=== PATIENT | female | born 1935 | race Caucasian/White ===

== ENCOUNTER → 2016-05-07 | Outpatient (CLI) | payer MEDICARE ==
--- NOTE | 2016-05-07 11:26 | MM ---
Reason for exam: screening (asymptomatic). Last mammogram was performed 1 year ago. History: Patient is postmenopausal and has history of other cancer at age 63. Family history of breast cancer in sister at age 58 and premenopausal breast cancer in mother at age 45. Ultrasound-guided cyst aspiration of the right breast, July 04, 1999. Benign cyst aspiration of the right breast. Physical Findings: A clinical breast exam by your physician is recommended on an annual basis and results should be correlated with mammographic findings. MG 3D Screening Mammo W/Cad Bilateral CC and MLO view(s) were taken. Prior study comparison: May 08, 2015, left breast MG 3d work up w/cad LT. May 02, 2015, bilateral MG screening mammo w CAD. The breast tissue is heterogeneously dense. This may lower the sensitivity of mammography. Finding: There are typically benign dystrophic, round calcifications in both breasts. There is a chronic nodularity in the right breast. There is no discrete abnormality. ASSESSMENT: Benign, BI-RAD 2 RECOMMENDATION: Routine screening mammogram of both breasts in 1 year.
== END | disposition home or self-care (01) ==
LOC: RADMAMWWP 09:46
PROVIDERS: ATTEND Internal Medicine
DX: Z12.31 Encounter for screening mammogram for malignant neoplasm of breast (principal)
CPT/HCPCS: 77063; G0202

== ENCOUNTER → 2016-08-07 | Day surgery (SDC) | payer MEDICARE ==
[2016-08-06 08:14] VITALS: BMI 26.0
[~2016-08-07] MED LIST: METOPROLOL TARTRATE 12.5 MG TAB PO SCH; METOPROLOL TARTRATE 25 MG TAB PO SCH; SODIUM CHLORIDE 0.9% 1,000 ML IV SCH
[2016-08-07 09:34] VITALS: BP 146/84; PULSE 76; RESP 16; TEMP 98.2
== END ==
LOC: CATHCVL 05:49
PROVIDERS: ATTEND Internal Medicine Interventional Cardiology
DX: I48.0 Paroxysmal atrial fibrillation (principal); I25.10 Atherosclerotic heart disease of native coronary artery without angina pectoris; I10 Essential (primary) hypertension; E78.5 Hyperlipidemia, unspecified; Z79.82 Long term (current) use of aspirin; Z79.899 Other long term (current) drug therapy; Z88.5 Allergy status to narcotic agent; Z88.1 Allergy status to other antibiotic agents
CPT/HCPCS: 93005

== ENCOUNTER 2017-01-27 16:52 | Inpatient (IN) | payer MEDICARE ==
[2017-01-27] MEDS ORDERED: SODIUM CHLORIDE 0.9% 1,000 ML IV STA (16:57)
--- NOTE | 2017-01-27 17:01 | ED ---
Dizziness HPI - General Chief Complaint: Syncope Stated Complaint: A-Fib Time Seen by Provider: 01/27/17 16:52 Source: patient, EMS, RN notes reviewed Mode of arrival: EMS Limitations: no limitations - History of Present Illness Initial Comments: This 81-year-old female who states that about a week ago she had a dizzy episode almost passed out. She states that today she had a recurrence of the dizziness increasing with upright positioning. She denies any headache she does state yesterday she had difficulty with her left ear and cannot hear well she was seen by EMS and brought in for evaluation showed glucose 192 systolic blood pressure 188 she does have a history of A. fib. No fevers chills nausea vomiting sweats no dysuria hematuria no cough or phlegm production MD Complaint: dizziness, lightheadedness - Related Data Home Medications Medication Instructions Recorded Confirmed Atorvastatin [Lipitor] 10 mg PO DAILY 10/31/14 01/27/17 Glucosamine/Chondr Miller A Sod [Osteo 1 tab PO DAILY 10/31/14 01/27/17 Bi-Flex Caplet] Levothyroxine Sodium [Synthroid] 100 mcg PO MOTUWETHFRSA 10/31/14 01/27/17 Levothyroxine Sodium [Synthroid] 150 mcg PO MILLER 10/31/14 01/27/17 Lisinopril-Hctz 10-12.5 mg 1 tab PO DAILY 10/31/14 01/27/17 [Zestoretic 10-12.5] Metoprolol Tartrate 25 mg PO BID 10/31/14 01/27/17 Multivit-Min/FA/Lycopene/Lut 1 tab PO DAILY 10/31/14 01/27/17 [Centrum Silver Tablet] Aspirin [Children's Aspirin] 81 mg PO DAILY 01/27/17 01/27/17 Cholecalciferol (Vitamin D3) 2,000 unit PO DAILY 01/27/17 01/27/17 [Vitamin D3] Fish Oil/Dha/Epa [Fish Oil 1,200 1 cap PO DAILY 01/27/17 01/27/17 mg Fish Oil] Warfarin [Coumadin] 5 mg PO DAILY 01/27/17 01/27/17 Allergies Allergy/AdvReac Type Severity Reaction Status Date / Time codeine Allergy Unknown Verified 01/27/17 17:25 Review of Systems ROS Statement: Those systems with pertinent positive or pertinent negative responses have been documented in the HPI. ROS Other: All systems not noted in ROS Statement are negative. Past Medical History Past Medical History: Atrial Fibrillation, Coronary Artery Disease (CAD), Cancer , Chest Pain / Angina, Hyperlipidemia, Hypertension, Osteoarthritis (OA), Skin Disorder, Thyroid Disorder Additional Past Medical History / Comment(s): hx THYROID CANCER, varicose veins , rash on toes, History of Any Multi-Drug Resistant Organisms: None Reported Past Surgical History: Section, Heart Catheterization With Stent, Hysterectomy, Orthopedic Surgery Additional Past Surgical History / Comment(s): thyroidectomy, BABATUNDE CATARACTS, babatunde OPPHERECTOMY W/SALPINGECTOMY, cardioversion, babatunde knee arthroscopy Past Anesthesia/Blood Transfusion Reactions: Postoperative Nausea & Vomiting ( PONV) Additional Past Anesthesia/Blood Transfusion Reaction / Comment(s): CLAUSTROPHOBIA Date of Last Stent Placement:: Past Psychological History: Anxiety Smoking Status: Never smoker Past Alcohol Use History: None Reported Past Drug Use History: None Reported - Past Family History Sister(s) Family Medical History: Cancer Father Family Medical History: Cancer Additional Family Medical History / Comment(s): AT AGE 73 COLON CANCER Mother Family Medical History: Cancer Additional Family Medical History / Comment(s): AGE 47 BREAST CANCER General Exam - General Exam Comments Initial Comments: This is a well-developed well-nourished awake alert oriented 3 female Limitations: no limitations General appearance: alert, in no apparent distress Head exam: Present: atraumatic, normocephalic, normal inspection Eye exam: Present: normal appearance, PERRL, EOMI. Absent: scleral icterus, conjunctival injection, periorbital swelling ENT exam: Present: mucous membranes dry Neck exam: Present: normal inspection. Absent: tenderness, meningismus, lymphadenopathy Respiratory exam: Present: normal lung sounds bilaterally. Absent: respiratory distress, wheezes, rales, rhonchi, stridor Cardiovascular Exam: Present: regular rate, normal rhythm, normal heart sounds. Absent: systolic murmur, diastolic murmur, rubs, gallop, clicks GI/Abdominal exam: Present: soft, normal bowel sounds. Absent: distended, tenderness, guarding, rebound, rigid Extremities exam: Present: normal inspection, full ROM, normal capillary refill. Absent: tenderness, pedal edema, joint swelling, calf tenderness Back exam: Present: normal inspection Neurological exam: Present: alert, oriented X3, CN II-XII intact Psychiatric exam: Present: normal affect, normal mood Skin exam: Present: warm, dry, intact, normal color. Absent: rash Course Vital Signs 01/27/17 01/27/17 01/27/17 16:54 17:56 18:58 Temperature 97.1 F L Pulse Rate 73 69 69 Respiratory 18 18 18 Rate Blood Pressure 172/81 165/76 181/77 O2 Sat by Pulse 97 94 L 95 Oximetry 01/27/17 19:36 Temperature Pulse Rate 66 Respiratory 18 Rate Blood Pressure 150/71 O2 Sat by Pulse 98 Oximetry EKG Findings - EKG Results: EKG: interpreted by ELIZABETH, sinus rhythm (Sinus rhythm rate of 61 appear of 01 66 QRS 84 daily since QTC of 448/450 nonspecific T-wave configuration.) Medical Decision Making - Medical Decision Making I did reevaluate patient several occasions patient has some improvement but still has some dizziness she was able ambulate somewhat easier with assistance. There is a prolonged period time I will admit the patient she'll be given a neurological consultation. - Lab Data Result diagrams: 01/27/17 17:00 01/27/17 17:00 Lab Results 01/27/17 01/27/17 01/27/17 Range/Units 17:00 17:00 17:00 WBC 7.5 (3.8-10.6) k/uL RBC 4.27 (3.80-5.40) m/uL Hgb 13.8 (11.4-16.0) gm/dL Hct 41.9 (34.0-46.0) % MCV 98.0 (80.0-100.0) fL MCH 32.4 (25.0-35.0) pg MCHC 33.0 (31.0-37.0) g/dL RDW 11.9 (11.5-15.5) % Plt Count 211 (150-450) k/uL Neutrophils % 86 % Lymphocytes % 9 % Monocytes % 3 % Eosinophils % 1 % Basophils % 1 % Neutrophils # 6.4 (1.3-7.7) k/uL Lymphocytes # 0.7 L (1.0-4.8) k/uL Monocytes # 0.2 (0-1.0) k/uL Eosinophils # 0.1 (0-0.7) k/uL Basophils # 0.0 (0-0.2) k/uL PT (9.0-12.0) sec INR (<1.2) APTT (22.0-30.0) sec D-Dimer (<0.60) mg/L FEU Sodium 140 (137-145) mmol/L Potassium 3.8 (3.5-5.1) mmol/L Chloride 104 (98-107) mmol/L Carbon Dioxide 25 (22-30) mmol/L Anion Gap 11 mmol/L BUN 17 (7-17) mg/dL Creatinine 0.92 (0.52-1.04) mg/dL Est GFR (MDRD) Af Amer >60 (>60 ml/min/1.73 sqM) Est GFR (MDRD) Non-Af 58 (>60 ml/min/1.73 sqM) Glucose 145 H (74-99) mg/dL Calcium 9.7 (8.4-10.2) mg/dL Magnesium 2.0 (1.6-2.3) mg/dL Total Bilirubin 0.7 (0.2-1.3) mg/dL AST 23 (14-36) U/L ALT 36 (9-52) U/L Alkaline Phosphatase 92 (38-126) U/L Total Creatine Kinase 55 (30-135) U/L CK-MB (CK-2) 1.0 (0.0-2.4) ng/mL CK-MB (CK-2) Rel Index 1.8 Troponin I <0.012 (0.000-0.034) ng/mL Total Protein 7.2 (6.3-8.2) g/dL Albumin 4.3 (3.5-5.0) g/dL Urine Color Urine Appearance (Clear) Urine pH (5.0-8.0) Ur Specific Gar[place] (1.001-1.035) Urine Protein (Negative) Urine Glucose (UA) (Negative) Urine Ketones (Negative) Urine Blood (Negative) Urine Nitrite (Negative) Urine Bilirubin (Negative) Urine Urobilinogen (<2.0) mg/dL Ur Leukocyte Esterase (Negative) Urine RBC (0-5) /hpf Urine WBC (0-5) /hpf Ur Squamous Epith Cells (0-4) /hpf Amorphous Sediment (None) /hpf Urine Bacteria (None) /hpf Urine Mucus (None) /hpf 01/27/17 01/27/17 Range/Units 17:00 19:44 WBC (3.8-10.6) k/uL RBC (3.80-5.40) m/uL Hgb (11.4-16.0) gm/dL Hct (34.0-46.0) % MCV (80.0-100.0) fL MCH (25.0-35.0) pg MCHC (31.0-37.0) g/dL RDW (11.5-15.5) % Plt Count (150-450) k/uL Neutrophils % % Lymphocytes % % Monocytes % % Eosinophils % % Basophils % % Neutrophils # (1.3-7.7) k/uL Lymphocytes # (1.0-4.8) k/uL Monocytes # (0-1.0) k/uL Eosinophils # (0-0.7) k/uL Basophils # (0-0.2) k/uL PT 11.7 (9.0-12.0) sec INR 1.2 H (<1.2) APTT 23.3 (22.0-30.0) sec D-Dimer 0.82 H (<0.60) mg/L FEU Sodium (137-145) mmol/L Potassium (3.5-5.1) mmol/L Chloride (98-107) mmol/L Carbon Dioxide (22-30) mmol/L Anion Gap mmol/L BUN (7-17) mg/dL Creatinine (0.52-1.04) mg/dL Est GFR (MDRD) Af Amer (>60 ml/min/1.73 sqM) Est GFR (MDRD) Non-Af (>60 ml/min/1.73 sqM) Glucose (74-99) mg/dL Calcium (8.4-10.2) mg/dL Magnesium (1.6-2.3) mg/dL Total Bilirubin (0.2-1.3) mg/dL AST (14-36) U/L ALT (9-52) U/L Alkaline Phosphatase (38-126) U/L Total Creatine Kinase (30-135) U/L CK-MB (CK-2) (0.0-2.4) ng/mL CK-MB (CK-2) Rel Index Troponin I (0.000-0.034) ng/mL Total Protein (6.3-8.2) g/dL Albumin (3.5-5.0) g/dL Urine Color Light Yellow Urine Appearance Cloudy H (Clear) Urine pH 7.5 (5.0-8.0) Ur Specific [place] 1.032 (1.001-1.035) Urine Protein Trace H (Negative) Urine Glucose (UA) 2+ H (Negative) Urine Ketones Trace H (Negative) Urine Blood Negative (Negative) Urine Nitrite Negative (Negative) Urine Bilirubin Negative (Negative) Urine Urobilinogen <2.0 (<2.0) mg/dL Ur Leukocyte Esterase Negative (Negative) Urine RBC 4 (0-5) /hpf Urine WBC 5 (0-5) /hpf Ur Squamous Epith Cells 1 (0-4) /hpf Amorphous Sediment Rare H (None) /hpf Urine Bacteria Many H (None) /hpf Urine Mucus Rare H (None) /hpf - Radiology Data Radiology results: report reviewed (I did review the imaging and reports no acute findings.), image reviewed Disposition Clinical Impression: Vertigo, Syncopal episodes Disposition: ADMITTED IP TO THIS [facility] Condition: Stable Referrals: Spencer Martinez MD [Primary Care Provider] - 1-2 days
[2017-01-27] MEDS ORDERED: ONDANSETRON 4 MG/2 ML VIAL IVP STA (17:12)
[2017-01-27 17:22] LABS: Basophils % (A) 1 %; CH 33.1; CHCM 33.9; Eosinophils # (A) 0.1 k/uL (0-0.7); Eosinophils % (A) 1 %; HCT 41.9 % (34.0-46.0); HDW 2.29; HGB 13.8 gm/dL (11.4-16.0); Luc # (Auto) 0.05; Luc % (Auto) 1; Lymphocytes # (A) 0.7 k/uL (1.0-4.8); Lymphocytes % (A) 9 %; MCH 32.4 pg (25.0-35.0); Mean Platelet Volume 6.9; Monocytes # (A) 0.2 k/uL (0-1.0); Monocytes % (A) 3 %; Neutrophils # (A) 6.4 k/uL (1.3-7.7); Neutrophils % (A) 86 %; RBC 4.27 m/uL (3.80-5.40); RDW 11.9 % (11.5-15.5); WBC 7.5 k/uL (3.8-10.6); WBC (Perox) 7.55
[2017-01-27 17:36] LABS: INR 1.2 (<1.2); Partial Thromboplastin Time 23.3 sec (22.0-30.0); Prothrombin Time 11.7 sec (9.0-12.0)
--- NOTE | 2017-01-27 17:40 | XR ---
EXAMINATION TYPE: XR chest 2V DATE OF EXAM: 01/27/2017 COMPARISON: 10/31/2014 HISTORY: Syncope TECHNIQUE: Frontal and lateral views of the chest are obtained. FINDINGS: Retrocardiac density relates to a partial intrathoracic stomach. No pleural effusion or fo karla consolidation is seen. Pleural plaquing is similar to the prior exam. There is increased anterior posterior diameter of the chest and pulmonary hyperinflation compatible with underlying COPD. Multil evel degenerative changes of the thoracic spine are noted. Cardiac silhouette is enlarged. Chronic in terstitial changes are seen of the lungs. Disease osseous demineralization is noted. IMPRESSION: 1. No acute cardiopulmonary process. 2. 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 3. Chronic interstitial changes and cardiomegaly.
[2017-01-27 17:41] LABS: ALT 36 U/L (9-52); AST 23 U/L (14-36); Alkaline Phosphatase 92 U/L (38-126); Anion Gap 11 mmol/L; Blood Urea Nitrogen 17 mg/dL (7-17); Calcium 9.7 mg/dL (8.4-10.2); Carbon Dioxide 25 mmol/L (22-30); Chloride 104 mmol/L (98-107); Creatine Kinase 55 U/L (30-135); Glucose 145 mg/dL (74-99); Non-African American GFR(MDRD) 58 (>60 ml/min/1.73 sqM); Potassium 3.8 mmol/L (3.5-5.1); Sodium 140 mmol/L (137-145); Total Bilirubin 0.7 mg/dL (0.2-1.3); Total Protein 7.2 g/dL (6.3-8.2)
[2017-01-27 17:53] LABS: Troponin I <0.012 ng/mL (0.000-0.034)
--- NOTE | 2017-01-27 18:00 | CT ---
EXAMINATION TYPE: CT brain wo con DATE OF EXAM: 01/27/2017 COMPARISON: NONE HISTORY: Dizziness, nausea and vomiting. CT DLP: 1069.20 mGycm. Automated Exposure Control for Dose Reduction was Utilized. TECHNIQUE: CT scan of the head is performed without contrast. FINDINGS: There is no acute intracranial hemorrhage or midline shift identified. There is diffuse v entricular and sulcal prominence consistent with diffuse age-related cerebral atrophy. There is low- attenuation in the periventricular white matter consistent with chronic small vessel ischemic change. The globes are intact and the visualized sinuses are clear. IMPRESSION: No acute intracranial hemorrhage or midline shift. There is diffuse age-related cerebra l atrophy and chronic small vessel ischemic change noted.
[2017-01-27] MEDS ORDERED: MECLIZINE 12.5 MG TAB PO STA (18:11)
[2017-01-27] MEDS ORDERED: RX INFO: IV CONTRAST WAS GIVEN 1 EACH MISC MISCELLANE PRN (18:51)
[2017-01-27] MEDS ORDERED: LORazepam 2 MG/ML INJ IV STA (18:52)
--- NOTE | 2017-01-27 20:18 | CT ---
EXAMINATION TYPE: CT angio chest DATE OF EXAM: 01/27/2017 COMPARISON: NONE HISTORY: Elevated d-dimer. CT DLP: 243.90 mGycm. Automated Exposure Control for Dose Reduction was Utilized. CONTRAST: CTA scan of the thorax is performed with IV Contrast, patient injected with 70 mL of Visipaque 320, p ulmonary embolism protocol. MIP Images are created on CT scanner and reviewed. FINDINGS: LUNGS: The stomach is largely intrathoracic with air-fluid levels and surrounding left basilar subseg mental atelectasis. Additional left basilar consolidation with air bronchograms is identified. Bibasi lar subsegmental atelectasis is noted with left apical dependent groundglass opacities. These are new in comparison to the prior examination of 2009. 3 mm right upper lobe pulmonary nodule is stable fro m 2010 and to be considered benign. Linear pleural parenchymal scarring is noted at the lung bases. MEDIASTINUM: There is satisfactory enhancement of the pulmonary artery and its branches, there is no CT evidence for pulmonary embolism. There are no greater than 1 cm hilar or mediastinal lymph nodes. 9 mm right hilar node is noted. No cardiomegaly or pericardial effusion is seen. IMPRESSION: 1. No evidence of pulmonary embolus. 2. Largely intrathoracic stomach appears similar in configuration to 2010. This results in left basil ar subsegmental atelectasis. Left-sided airspace disease is also identified with air bronchograms melvin t may relate to atelectasis and/or pneumonia. Left apical groundglass opacities are new from prior an d short-term CT follow-up could be performed in 6 months for reevaluation.
[2017-01-27 20:20] LABS: Amorphous Sediment,Urine Rare /hpf; Appearance,Urine Cloudy (Clear); Bacteria,Urine Many /hpf; Bilirubin,Urine Negative (Negative); Glucose,Urine (UA) 2+ (Negative); Ketones,Urine Trace (Negative); Leukocyte Esterase,Urine Negative (Negative); Mucus,Urine Rare /hpf; Nitrite,Urine Negative (Negative); PH, Urine 7.5 (5.0-8.0); Particle Count 9146; Protein,Urine Trace (Negative); RBC,Urine 4 /hpf (0-5); Specific Gravity,Urine 1.032 (1.001-1.035); Squamous Epithelial Cell,Urine 1 /hpf (0-4); UA Billing (MACRO vs. MICRO) MICRO; Urobilinogen,Urine <2.0 mg/dL (<2.0); WBC,Urine 5 /hpf (0-5)
[2017-01-27] MEDS ORDERED: NALOXONE 0.4 MG/ML 1 ML VIAL IV PRN (21:41)
[2017-01-27] MEDS: LEVOTHYROXINE 100 MCG TAB PO SCH (22:28)
[2017-01-27 22:38] VITALS: BMI 28.8
[2017-01-27] MEDS ORDERED: ONDANSETRON 4 MG/2 ML VIAL IVP PRN (23:23)
[2017-01-27] MEDS ORDERED: MELATONIN 3 MG TABLET PO PRN (23:26)
[2017-01-28] MEDS: MECLIZINE 25 MG TAB PO SCH ×4 (00:01→21:52)
[2017-01-28] MEDS: SODIUM CHLORIDE 0.9% 1,000 ML IV SCH ×2 (00:03→21:58)
[2017-01-28] MEDS: LEVOTHYROXINE 100 MCG TAB PO SCH (06:15)
[2017-01-28 06:32] LABS: Basophils % (A) 0 %; CHCM 33.6; Eosinophils # (A) 0.1 k/uL (0-0.7); Eosinophils % (A) 1 %; HCT 38.7 % (34.0-46.0); HDW 2.27; HGB 12.6 gm/dL (11.4-16.0); Luc # (Auto) 0.13; Luc % (Auto) 2; Lymphocytes % (A) 12 %; MCH 32.3 pg (25.0-35.0); MCHC 32.7 g/dL (31.0-37.0); MCV 98.8 fL (80.0-100.0); Monocytes # (A) 0.5 k/uL (0-1.0); Monocytes % (A) 6 %; Neutrophils # (A) 6.8 k/uL (1.3-7.7); Neutrophils % (A) 80 %; RBC 3.91 m/uL (3.80-5.40); RDW 12.1 % (11.5-15.5); WBC 8.5 k/uL (3.8-10.6); WBC (Perox) 9.03
[2017-01-28 06:34] LABS: INR 1.6 (<1.2); Prothrombin Time 15.5 sec (9.0-12.0)
[2017-01-28 06:44] LABS: Anion Gap 7 mmol/L; Blood Urea Nitrogen 15 mg/dL (7-17); Carbon Dioxide 27 mmol/L (22-30); Chloride 104 mmol/L (98-107); Glucose 106 mg/dL (74-99); Magnesium 1.9 mg/dL (1.6-2.3); Non-African American GFR(MDRD) 60 (>60 ml/min/1.73 sqM); Potassium 3.6 mmol/L (3.5-5.1); Sodium 138 mmol/L (137-145)
[2017-01-28] MEDS ORDERED: NON-FORMULARY DRUG (Fish Oil/Dha/Epa [Fish Oil 1,200 Mg Fish Oil] 1 CAP) PO SCH (09:00)
[2017-01-28] MEDS ORDERED: NON-FORMULARY DRUG (Glucosamine/Chondr Su A Sod [Osteo Bi-Flex Caplet] 1 TAB) PO SCH (09:00)
--- NOTE | 2017-01-28 09:21 | P.CRDCN ---
History of Present Illness Consult date: 01/28/17 Chief complaint: Dizziness and lightheadedness History of present illness: This is a pleasant 81-year-old female patient who I see in the office as an outpatient with a past medical history significant for coronary artery disease, hypertension, dyslipidemia, and paroxysmal A. fib, presented to the hospital complaining of dizziness and lightheadedness. The patient has been experiencing intermittent and a prompt episode of dizziness and lightheadedness without loss of consciousness. She denies having any chest pain or chest discomfort. Denies having any shortness of breath. No feeling of heart racing or fluttering. The patient has been experiencing atrial fibrillation with RVR over the last several months and I did some adjustment on her beta nayely were I did increase the dose on her lately. But she has been doing good for the last several months until few weeks ago when she started experiencing the dizziness and lightheadedness. The first set of cardiac enzymes came in to be unremarkable. The EKG showed sinus rhythm with diffuse nonspecific changes. At this point, I will follow-up with the serial cardiac enzymes. I will obtain an echocardiogram was Doppler. I will continue monitor the heart rate to make sure the patient is not having tachybradycardia syndrome/sick sinus syndrome. Past Medical History Past Medical History: Atrial Fibrillation, Coronary Artery Disease (CAD), Cancer , Chest Pain / Angina, Hyperlipidemia, Hypertension, Osteoarthritis (OA), Skin Disorder, Thyroid Disorder Additional Past Medical History / Comment(s): hx THYROID CANCER, varicose veins , rash on toes, History of Any Multi-Drug Resistant Organisms: None Reported Past Surgical History: Section, Heart Catheterization With Stent, Hysterectomy, Orthopedic Surgery Additional Past Surgical History / Comment(s): thyroidectomy, BABATUNDE CATARACTS, babatunde OPPHERECTOMY W/SALPINGECTOMY, cardioversion, babatunde knee arthroscopy Past Anesthesia/Blood Transfusion Reactions: Postoperative Nausea & Vomiting ( PONV) Additional Past Anesthesia/Blood Transfusion Reaction / Comment(s): CLAUSTROPHOBIA Date of Last Stent Placement:: Past Psychological History: Anxiety Smoking Status: Never smoker Past Alcohol Use History: None Reported Past Drug Use History: None Reported - Past Family History Sister(s) Family Medical History: Cancer Father Family Medical History: Cancer Additional Family Medical History / Comment(s): AT AGE 73 COLON CANCER Mother Family Medical History: Cancer Additional Family Medical History / Comment(s): AGE 47 BREAST CANCER Medications and Allergies Home Medications Medication Instructions Recorded Confirmed Type Atorvastatin [Lipitor] 10 mg PO DAILY 10/31/14 01/27/17 History Glucosamine/Chondr Miller A Sod [Osteo 1 tab PO DAILY 10/31/14 01/27/17 History Bi-Flex Caplet] Levothyroxine Sodium [Synthroid] 100 mcg PO MOTUWETHFRSA 10/31/14 01/27/17 History Levothyroxine Sodium [Synthroid] 150 mcg PO MILLER 10/31/14 01/27/17 History Lisinopril-Hctz 10-12.5 mg 1 tab PO DAILY 10/31/14 01/27/17 History [Zestoretic 10-12.5] Metoprolol Tartrate 25 mg PO BID 10/31/14 01/27/17 History Multivit-Min/FA/Lycopene/Lut 1 tab PO DAILY 10/31/14 01/27/17 History [Centrum Silver Tablet] Aspirin [Children's Aspirin] 81 mg PO DAILY 01/27/17 01/27/17 History Cholecalciferol (Vitamin D3) 2,000 unit PO DAILY 01/27/17 01/27/17 History [Vitamin D3] Fish Oil/Dha/Epa [Fish Oil 1,200 1 cap PO DAILY 01/27/17 01/27/17 History mg Fish Oil] Warfarin [Coumadin] 5 mg PO DAILY 01/27/17 01/27/17 History Allergies Allergy/AdvReac Type Severity Reaction Status Date / Time codeine Allergy Unknown Verified 01/27/17 17:25 Physical Exam Vitals: Vital Signs Temp Pulse Pulse Pulse Pulse Pulse Resp 01/28/17 08:00 97.7 F 83 90 77 12 01/28/17 04:00 98.2 F 72 18 01/28/17 00:00 97 F L 76 18 01/27/17 22:26 18 01/27/17 21:59 98.7 F 74 18 01/27/17 19:36 66 18 01/27/17 18:58 69 18 01/27/17 17:56 69 18 01/27/17 16:54 97.1 F L 73 18 BP BP BP BP Pulse Ox 01/28/17 08:00 143/81 149/75 131/64 95 01/28/17 04:00 129/60 96 01/28/17 00:00 127/64 95 01/27/17 22:26 148/82 145/85 145/77 92 L 01/27/17 21:59 98 01/27/17 19:36 150/71 98 01/27/17 18:58 181/77 95 01/27/17 17:56 165/76 94 L 01/27/17 16:54 172/81 97 Intake and Output 01/27/17 01/28/17 01/28/17 22:59 06:59 14:59 Intake Total 240 Balance 240 Intake: Oral 240 Other: # Voids 1 2 Weight 73.936 kg 54.5 kg - Constitutional General appearance: no acute distress - Respiratory Respiratory: bilateral: CTA - Cardiovascular Rhythm: regular Heart sounds: normal: S1, S2 Results 01/28/17 05:21 01/28/17 05:21 Cardiac Enzymes 01/27/17 01/27/17 Range/Units 17:00 17:00 AST 23 (14-36) U/L CK-MB (CK-2) 1.0 (0.0-2.4) ng/mL Troponin I <0.012 (0.000-0.034) ng/mL Coagulation 01/27/17 01/28/17 Range/Units 17:00 05:21 PT 11.7 15.5 H (9.0-12.0) sec APTT 23.3 (22.0-30.0) sec CBC 01/27/17 01/28/17 Range/Units 17:00 05:21 WBC 7.5 8.5 (3.8-10.6) k/uL RBC 4.27 3.91 (3.80-5.40) m/uL Hgb 13.8 12.6 (11.4-16.0) gm/dL Hct 41.9 38.7 (34.0-46.0) % Plt Count 211 209 (150-450) k/uL Comprehensive Metabolic Panel 01/27/17 01/28/17 Range/Units 17:00 05:21 Sodium 140 138 (137-145) mmol/L Potassium 3.8 3.6 (3.5-5.1) mmol/L Chloride 104 104 (98-107) mmol/L Carbon Dioxide 25 27 (22-30) mmol/L BUN 17 15 (7-17) mg/dL Creatinine 0.92 0.90 (0.52-1.04) mg/dL Glucose 145 H 106 H (74-99) mg/dL Calcium 9.7 9.0 (8.4-10.2) mg/dL AST 23 (14-36) U/L ALT 36 (9-52) U/L Alkaline Phosphatase 92 (38-126) U/L Total Protein 7.2 (6.3-8.2) g/dL Albumin 4.3 (3.5-5.0) g/dL Current Medications Generic Name Dose Route Start Last Admin Trade Name Freq PRN Reason Stop Dose Admin Aspirin 81 mg 01/28/17 09:00 Aspirin PO DAILY [facility] Atorvastatin Calcium 10 mg 01/28/17 09:00 Lipitor PO DAILY [facility] Cholecalciferol 2,000 unit 01/28/17 12:00 Vitamin D3 PO DAILY@1200 [facility] Lisinopril/HCTZ 1 each 01/28/17 09:00 Zestoretic 10-12.5 PO DAILY [facility] Sodium Chloride 1,000 mls @ 20 mls/hr 01/27/17 21:45 01/28/17 00:03 Saline 0.9% IV 20 mls/hr .Q24H [facility]GENE Administration Levothyroxine Sodium 150 mcg 02/02/17 06:30 Synthroid PO MILLER EUGENE Levothyroxine Sodium 100 mcg 01/27/17 21:45 01/28/17 06:15 Synthroid PO 100 mcg [id number] EUGEN[facility] Administration Meclizine HCl 25 mg 01/27/17 22:00 01/28/17 00:01 Antivert PO 25 mg TID EUGENE Administration Melatonin 6 mg 01/27/17 23:26 01/28/17 00:01 Melatonin PO 6 mg HS PRN Administration Insomnia Metoprolol Tartrate 25 mg 01/28/17 09:00 Lopressor PO BID [facility] Miscellaneous Information 1 each 01/27/17 18:51 01/27/17 19:19 Rx Info: Iv Contrast Was Given MISCELLANE 01/29/17 18:51 1 each DAILY PRN Administration Per Protocol Multivitamins 1 each 01/28/17 12:00 Theragran PO DAILY@1200 [facility] Naloxone HCl 0.2 mg 01/27/17 21:41 Narcan IV Q2M PRN Opioid Reversal Ondansetron HCl 4 mg 01/27/17 23:23 Zofran IVP Q6HR PRN Nausea And Vomiting Warfarin Sodium 5 mg 01/28/17 18:00 Coumadin PO DAILY@1800 [facility] Intake and Output 01/27/17 01/28/17 01/28/17 22:59 06:59 14:59 Intake Total 240 Balance 240 Intake: Oral 240 Other: # Voids 1 2 Weight 73.936 kg 54.5 kg 01/28/17 05:21 01/28/17 05:21 Assessment and Plan Assessment: This is a pleasant 81-year-old female patient with known CAD and prior stenting , paroxysmal A. fib, and hypertension, presented to the emergency room was dizziness and lightheadedness without syncope. I am concerned about tachybradycardia syndrome/sick sinus syndrome. I am going to monitor the heart rate for additional 24 hours. Follow-up with the serial cardiac enzymes. Follow-up with the patient. Obtain an echocardiogram was Doppler.
[2017-01-28] MEDS: ATORVASTATIN 10 MG TAB PO SCH (09:31)
[2017-01-28] MEDS: ASPIRIN 81 MG PO SCH (09:31)
[2017-01-28] MEDS: METOPROLOL TARTRATE 25 MG TAB PO SCH ×2 (09:31→21:51)
[2017-01-28] MEDS: LISINOPRIL-HCTZ 10-12.5 MG 1 EACH TAB PO SCH (09:31)
[2017-01-28] MEDS: MULTIVITAMINS, THERA 1 EACH TAB PO SCH (09:32)
[2017-01-28] MEDS: CHOLECALCIFEROL 1,000 UNIT TAB PO SCH (09:32)
[2017-01-28] MEDS ORDERED: Potassium Replacement Protocol 1 EACH MISC MISCELLANE PRN (10:24)
[2017-01-28] MEDS ORDERED: Magnesium Replacement Protocol 1 EACH MISC MISCELLANE PRN (10:24)
[2017-01-28] MEDS ORDERED: POTASSIUM CHLORIDE ER 20 MEQ TAB.ER PO SCH (11:00)
--- NOTE | 2017-01-28 14:05 | P.HPIM ---
History of Present Illness 80-year-old female patient with known history of atrial fibrillation came in with compensative dizziness lightheadedness restarted yesterday happens mostly when she tries to get up patient denied any fever, chills, nausea, vomiting. Patient follows with Dr. Anguiano apparently patient's beta nayely dose was increased recently and there was a concern about tachybradycardia syndrome because of which we're monitoring her overnight here. Patient denied any cough runny nose chest pain nausea vomiting dysuria. Patient denied any vertiginous symptoms. CAT scan of the head is essentially negative chest a CAT scan was done which showed little bit of a bronchogram but patient does not have any symptoms of pneumonia patient has intrathoracic stomach. Review of Systems REVIEW OF SYSTEMS: CONSTITUTIONAL: No fever, no malaise, no fatigue. HEENT: No recent visual problems or hearing problems. Denied any sore throat. CARDIOVASCULAR: No chest pain, orthopnea, PND, no palpitations, no syncope. PULMONARY: No shortness of breath, no cough, no hemoptysis. GASTROINTESTINAL: No diarrhea, no nausea, no vomiting, no abdominal pain. Normoactive bowel sounds. NEUROLOGICAL: No headaches, no weakness, no numbness. HEMATOLOGICAL: Denies any bleeding or petechiae. GENITOURINARY: Denies any burning micturition, frequency, or urgency. MUSCULOSKELETAL/RHEUMATOLOGICAL: Denies any joint pain, swelling, or any muscle pain. ENDOCRINE: Denies any polyuria or polydipsia. The rest of the 14-point review of systems is negative. Past Medical History Past Medical History: Atrial Fibrillation, Coronary Artery Disease (CAD), Cancer , Chest Pain / Angina, Hyperlipidemia, Hypertension, Osteoarthritis (OA), Skin Disorder, Thyroid Disorder Additional Past Medical History / Comment(s): hx THYROID CANCER, varicose veins , rash on toes, History of Any Multi-Drug Resistant Organisms: None Reported Past Surgical History: Section, Heart Catheterization With Stent, Hysterectomy, Orthopedic Surgery Additional Past Surgical History / Comment(s): thyroidectomy, BABATUNDE CATARACTS, babatunde OPPHERECTOMY W/SALPINGECTOMY, cardioversion, babatunde knee arthroscopy Past Anesthesia/Blood Transfusion Reactions: Postoperative Nausea & Vomiting ( PONV) Additional Past Anesthesia/Blood Transfusion Reaction / Comment(s): CLAUSTROPHOBIA Date of Last Stent Placement:: Past Psychological History: Anxiety Smoking Status: Never smoker Past Alcohol Use History: None Reported Past Drug Use History: None Reported - Past Family History Sister(s) Family Medical History: Cancer Father Family Medical History: Cancer Additional Family Medical History / Comment(s): AT AGE 73 COLON CANCER Mother Family Medical History: Cancer Additional Family Medical History / Comment(s): AGE 47 BREAST CANCER Medications and Allergies Home Medications Medication Instructions Recorded Confirmed Type Atorvastatin [Lipitor] 10 mg PO DAILY 10/31/14 01/27/17 History Glucosamine/Chondr Devlin A Sod [Osteo 1 tab PO DAILY 10/31/14 01/27/17 History Bi-Flex Caplet] Levothyroxine Sodium [Synthroid] 100 mcg PO MOTUWETHFRSA 10/31/14 01/27/17 History Levothyroxine Sodium [Synthroid] 150 mcg PO DEVLIN 10/31/14 01/27/17 History Lisinopril-Hctz 10-12.5 mg 1 tab PO DAILY 10/31/14 01/27/17 History [Zestoretic 10-12.5] Metoprolol Tartrate 25 mg PO BID 10/31/14 01/27/17 History Multivit-Min/FA/Lycopene/Lut 1 tab PO DAILY 10/31/14 01/27/17 History [Centrum Silver Tablet] Aspirin [Children's Aspirin] 81 mg PO DAILY 01/27/17 01/27/17 History Cholecalciferol (Vitamin D3) 2,000 unit PO DAILY 01/27/17 01/27/17 History [Vitamin D3] Fish Oil/Dha/Epa [Fish Oil 1,200 1 cap PO DAILY 01/27/17 01/27/17 History mg Fish Oil] Warfarin [Coumadin] 5 mg PO DAILY 01/27/17 01/27/17 History Allergies Allergy/AdvReac Type Severity Reaction Status Date / Time codeine Allergy Unknown Verified 01/27/17 17:25 Physical Exam Vitals: Vital Signs Temp Pulse Pulse Pulse Pulse Pulse Resp 01/28/17 11:50 16 01/28/17 11:49 73 16 01/28/17 08:40 12 01/28/17 08:00 97.7 F 83 90 77 12 01/28/17 04:00 98.2 F 72 18 01/28/17 00:00 97 F L 76 18 01/27/17 22:26 18 01/27/17 21:59 98.7 F 74 18 01/27/17 19:36 66 18 01/27/17 18:58 69 18 01/27/17 17:56 69 18 01/27/17 16:54 97.1 F L 73 18 BP BP BP BP Pulse Ox 01/28/17 11:50 01/28/17 11:49 142/70 94 L 01/28/17 08:40 01/28/17 08:00 143/81 149/75 131/64 95 01/28/17 04:00 129/60 96 01/28/17 00:00 127/64 95 01/27/17 22:26 148/82 145/85 145/77 92 L 01/27/17 21:59 98 01/27/17 19:36 150/71 98 01/27/17 18:58 181/77 95 01/27/17 17:56 165/76 94 L 01/27/17 16:54 172/81 97 Intake and Output 01/27/17 01/28/17 01/28/17 22:59 06:59 14:59 Intake Total 240 Output Total 200 Balance 40 Intake: Oral 240 Output: Urine 200 Other: # Voids 1 2 Weight 73.936 kg 54.5 kg PHYSICAL EXAMINATION: GENERAL: The patient is alert and oriented x3, not in any acute distress. Well developed, well nourished. HEENT: Pupils are round and equally reacting to light. EOMI. No scleral icterus. No conjunctival pallor. Normocephalic, atraumatic. No pharyngeal erythema. No thyromegaly. CARDIOVASCULAR: S1 and S2 present. No murmurs, rubs, or gallops. PULMONARY: Chest is clear to auscultation, no wheezing or crackles. ABDOMEN: Soft, nontender, nondistended, normoactive bowel sounds. No palpable organomegaly. MUSCULOSKELETAL: No joint swelling or deformity. EXTREMITIES: No cyanosis, clubbing, or pedal edema. NEUROLOGICAL: Gross neurological examination did not reveal any focal deficits. SKIN: No rashes. Results CBC & Chem 7: 01/28/17 05:21 01/28/17 05:21 Labs: Abnormal Lab Results - Last 24 Hours (Table) 10/30/17 10/30/17 10/30/17 Range/Units 17:00 17:00 17:00 Lymphocytes # 0.7 L (1.0-4.8) k/uL PT (9.0-12.0) sec INR 1.2 H (<1.2) D-Dimer 0.82 H (<0.60) mg/L FEU Glucose 145 H (74-99) mg/dL Urine Appearance (Clear) Urine Protein (Negative) Urine Glucose (UA) (Negative) Urine Ketones (Negative) Amorphous Sediment (None) /hpf Urine Bacteria (None) /hpf Urine Mucus (None) /hpf 01/27/17 01/28/17 01/28/17 Range/Units 19:44 05:21 05:21 Lymphocytes # (1.0-4.8) k/uL PT 15.5 H (9.0-12.0) sec INR 1.6 H (<1.2) D-Dimer (<0.60) mg/L FEU Glucose 106 H (74-99) mg/dL Urine Appearance Cloudy H (Clear) Urine Protein Trace H (Negative) Urine Glucose (UA) 2+ H (Negative) Urine Ketones Trace H (Negative) Amorphous Sediment Rare H (None) /hpf Urine Bacteria Many H (None) /hpf Urine Mucus Rare H (None) /hpf Thrombosis Risk Factor Assmnt - Choose All That Apply Each Risk Factor Represents 3 Points: Age 75 years or older Thrombosis Risk Factor Assessment Total Risk Factor Score: 3 Thrombosis Risk Factor Assessment Level: Moderate Risk Assessment and Plan Plan: #1 near syncopal episode: Concern about tachycardia-bradycardia syndrome, patient will be monitored overnight continue with present medications patient orthostatic vitals are negative. #2 atrial fibrillation: Presently rate controlled Coumadin any subacute therapy but will continue the same dose of Coumadin depending on INR tomorrow we will decide on discharge Coumadin. #3 hiatal hernia #4 coronary artery disease #5 hyperlipidemia #6 hypertension #7 hypothyroidism For above-mentioned chronic medical problems appropriate home and occasions will be continued.
[2017-01-28] MEDS ORDERED: WARFARIN 5 MG TAB PO SCH (18:00)
[2017-01-29] MEDS: METOPROLOL TARTRATE 25 MG TAB PO SCH ×2 (05:02→20:46)
[2017-01-29 05:52] LABS: INR 2.6 (<1.2); Prothrombin Time 25.5 sec (9.0-12.0)
[2017-01-29] MEDS: LEVOTHYROXINE 100 MCG TAB PO SCH (06:53)
[2017-01-29] MEDS: ATORVASTATIN 10 MG TAB PO SCH (07:54)
[2017-01-29] MEDS: CHOLECALCIFEROL 1,000 UNIT TAB PO SCH (07:54)
[2017-01-29] MEDS: LISINOPRIL-HCTZ 10-12.5 MG 1 EACH TAB PO SCH (07:54)
[2017-01-29] MEDS: MULTIVITAMINS, THERA 1 EACH TAB PO SCH (07:54)
[2017-01-29] MEDS: MECLIZINE 25 MG TAB PO SCH ×3 (07:54→20:46)
[2017-01-29] MEDS: ASPIRIN 81 MG PO SCH (07:54)
--- NOTE | 2017-01-29 09:21 | CONS ---
CONSULTATION DATE OF CONSULTATION: 01/28/2017 CHIEF COMPLAINT: Dizziness. HISTORY OF PRESENT ILLNESS: The patient is a pleasant 81-year-old, female, who is being evaluated today on 01/28/2017 by the Neurology Service per the request of Dr. Degroot for dizziness. The patient was brought into [facility] after she started feeling lightheaded today before arrival and the symptoms did not resolve. She also had some nausea and dry heaving. She denies having any fevers or chills. She does have history of atrial fibrillation and was recently switched from Eliquis to Coumadin. She just started Coumadin 2 days ago. Her INR on arrival was subtherapeutic at 1.2 yesterday and that has improved to 1.6 today. She also reports that she recently saw Dr. Anguiano and her beta nayely medication was adjusted. A CT scan of the brain was done, which showed generalized atrophy with no acute abnormalities. Her CBC, comprehensive metabolic profile, cardiac enzymes and urinalysis were reviewed and were all normal. At the time of my evaluation, she is lying in her bed and appears to be in no acute distress. She still reports mild dizziness when she gets out of bed but states that the intensity has improved. She is currently on IV hydration. PAST MEDICAL HISTORY: Atrial fibrillation, coronary artery disease, hypertension, dyslipidemia, arthritis, history of thyroid cancer, history of , hysterectomy, coronary artery stent placement, thyroidectomy, cataract surgery, orthopedic surgeries, history of cardioversion, anxiety disorder. SOCIAL HISTORY: She denies any tobacco, alcohol or drug use. FAMILY HISTORY: Positive for cancer. HOME MEDICATIONS: Reviewed in the chart. ALLERGIES: CODEINE. REVIEW OF SYSTEMS: As mentioned above and otherwise negative. PHYSICAL EXAM: Vital signs show a temperature of 98.7, pulse 73, respirations 16, blood pressure 153/90. GENERAL APPEARANCE: The patient is a well-developed, elderly female, who appears to be in no acute distress. HEENT: Normocephalic, atraumatic, no facial asymmetry is seen. NECK: Supple with no masses felt. CARDIOVASCULAR: Regular rate and rhythm. ABDOMEN: Nontender, nondistended. Extremities showed no clubbing or cyanosis. NEUROLOGICAL EXAM: The patient is alert, aware and oriented x3. Speech and language are normal. Strength is full in all 4 extremities. Sensory exam was normal to light touch in all 4 extremities. No tremors or seizure-like activity is seen. No facial asymmetry is noticed on cranial nerve testing. IMPRESSION: 1. Dizziness. 2. Atrial fibrillation. 3. Subtherapeutic INR. RECOMMENDATION: The patient's dizziness is more consistent with cardiovascular etiology especially with her recent changes in her anticoagulation therapy and beta nayely dosing. Her neurological examination is normal and her CT scan of the brain showed no acute findings. Her INR is subtherapeutic but she only started Coumadin 2 days ago. Cardiology is following the patient. I will order a carotid Doppler and EEG. Continue neuro checks. Continue the rest of your current workup and management. I will continue to follow with you. Further recommendations to follow. Thank you for allowing me to participate in the care of your patient. If you have any questions, please feel free to contact me. DASIA / CLARITA: [id number] /
--- NOTE | 2017-01-29 14:16 | P.PN ---
Subjective Progress Note Date: 01/29/17 Patient is a pleasant 81-year-old female who is being followed by the neurology service for dizziness. Patient was feeling lightheaded and dizzy throughout the day and symptoms persisted so she came to [facility] for further evaluation. Patient does have history of atrial fibrillation and was recently switched from Eliquis to Coumadin. INR was not yet therapeutic on admission as she had just started Coumadin 2 days prior. INR is 2.6 today which is therapeutic. 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 I had ordered a carotid Doppler, however patient is concerned insurance may not pay for this. Patient had carotid Doppler done less than 1 year ago and I requested those records. At the time of my evaluation, patient's resting comfortably in bed and appears to be in no acute distress. Patient's is at the bedside. Objective - Vital Signs Vital signs: Vital Signs Temp 98 F 01/29/17 11:37 Pulse 93 01/29/17 11:37 Resp 16 01/29/17 11:37 BP 121/67 01/29/17 11:37 Pulse Ox 97 01/29/17 11:37 Intake & Output 01/28/17 01/29/17 01/29/17 18:59 06:59 18:59 Intake Total 600 150 Output Total 200 Balance 400 150 Weight 64.6 kg Intake: Oral 600 150 Output: Urine 200 Other: # Voids 1 - Exam PHYSICAL EXAM: GENERAL APPEARANCE: Patient is a well-developed, female who appears to be in no acute distress. HEENT: Normocephalic, atraumatic, no facial asymmetry is seen. Neck is supple with no masses felt. CARDIOVASCULAR: Regular rate and rhythm. ABDOMEN: Nontender, nondistended. EXTREMITIES: Show no edema or clubbing. NEUROLOGICAL EXAM: Patient is awake, alert, and oriented 3. Speech and language are normal. Strength is full in all 4 extremities. Sensory exam is normal to light touch in all 4 extremities. No facial asymmetry is noted on cranial nerve testing. No tremors or seizure-like activity is seen. - Labs CBC & Chem 7: 01/28/17 05:21 01/28/17 05:21 Labs: Abnormal Lab Results - Last 24 Hours (Table) 01/29/17 Range/Units 05:16 PT 25.5 H (9.0-12.0) sec INR 2.6 H (<1.2) Assessment and Plan Plan: Impression: 1. Dizziness 2. Atrial fibrillation Recommendation: Patient's dizziness is more consistent with cardiovascular etiology especially with the recent changes in her anticoagulation therapy and beta nayely dosing. Her neurological exam is normal and her computed tomography scan of the brain showed no acute findings. Her INR is currently therapeutic at 2.6. I am awaiting her carotid Doppler report which was done less than a year ago. EEG was done and results are pending. Continue neurological checks. Cardiology is following. Continue current workup and management. I will continue to follow with you. Further recommendations to follow. I performed an examination of the patient and discussed the management with the TANK TRUCK LOADER. I have reviewed the TANK TRUCK LOADER notes and agree with the findings and plan of care.
--- NOTE | 2017-01-29 15:16 | P.PN ---
Subjective Progress Note Date: 01/29/17 Principal diagnosis: dizziness This is an 81-year-old female who follows with Dr. Franco in the office. She has a past medical history significant for coronary artery disease , hypertension, hyperlipidemia, paroxysmal atrial fibrillation, she presented to the hospital with symptoms of dizziness and lightheadedness. This morning around 4 AM patient went into A. fib with RVR, she states that she became extremely dizzy and lightheaded, states that she also felt mildly short of breath. CBC has been normal, INR today 2.6, potassium 3.6, BUN 15, creatinine 0.9. Mag level I.8. Troponin negative. Patient did have an EEG today, results are yet pending. She is being followed by neurology for her symptoms of dizziness. At the time of my examination today, she continues to be in A. fib however her rate is under good control. She does state that she feels much better than she did earlier today. CAT scan of the chest did not reveal any evidence of a pulmonary embolism. CAT scan of the brain did not reveal any acute intracranial hemorrhage or midline shift. Objective - Vital Signs Vital signs: Vital Signs Temp 98 F 01/29/17 11:37 Pulse 93 01/29/17 11:37 Resp 16 01/29/17 11:37 BP 121/67 01/29/17 11:37 Pulse Ox 97 01/29/17 11:37 Intake & Output 01/28/17 01/29/17 01/29/17 18:59 06:59 18:59 Intake Total 600 150 Output Total 200 Balance 400 150 Weight 64.6 kg Intake: Oral 600 150 Output: Urine 200 Other: # Voids 1 - Exam PHYSICAL EXAMINATION: HEENT: Head is atraumatic, normocephalic. Pupils equal, round. Neck is supple. There is no elevated jugular venous pressure. HEART EXAMINATION: S1 and S2 irregularly irregular CHEST EXAMINATION: Lungs are clear to auscultation and precussion. No chest wall tenderness is noted on palpation or with deep breathing. ABDOMEN: Soft, nontender. Bowel sounds are heard. No organomegaly noted. EXTREMITIES: 2+ peripheral pulses with no evidence of peripheral edema and no calf tenderness noted. NEUROLOGIC patient is awake, alert and oriented -3. . - Labs CBC & Chem 7: 01/28/17 05:21 01/28/17 05:21 Labs: Abnormal Lab Results - Last 24 Hours (Table) 01/29/17 Range/Units 05:16 PT 25.5 H (9.0-12.0) sec INR 2.6 H (<1.2) Assessment and Plan Plan: Assessment and plan #1 symptoms of dizziness and lightheadedness, Dr. Franco does have a concern about possible tachybradycardia syndrome. currently in atrial fibrillation with controlled ventricular response. #2 paroxysmal atrial fibrillation, INR 2.6. #3 history of coronary artery disease #4 hypertension # 5 hyperlipidemia Plan We will obtain an echocardiogram with Doppler study. The last echo the patient had here revealed an ejection fraction of 55%. Her INR on admission was subtherapeutic at 1.2, she is 2.6 this morning. Consider medically converting the patient to sinus. We'll discuss further with Dr. Franco. DNP note has been reviewed, I agree with a documented findings and plan of care. Patient was seen and examined.
--- NOTE | 2017-01-29 15:22 | P.PN ---
Objective - Vital Signs Vital signs: Vital Signs Temp 98 F 01/29/17 11:37 Pulse 93 01/29/17 11:37 Resp 16 01/29/17 11:37 BP 121/67 01/29/17 11:37 Pulse Ox 97 01/29/17 11:37 Intake & Output 01/28/17 01/29/17 01/29/17 18:59 06:59 18:59 Intake Total 600 150 Output Total 200 Balance 400 150 Weight 64.6 kg Intake: Oral 600 150 Output: Urine 200 Other: # Voids 1 - Exam GENERAL: The patient is alert and oriented x3, not in any acute distress. Well developed, well nourished. HEENT: Pupils are round and equally reacting to light. EOMI. No scleral icterus. No conjunctival pallor. Normocephalic, atraumatic. No pharyngeal erythema. No thyromegaly. CARDIOVASCULAR: S1 and S2 present. No murmurs, rubs, or gallops. PULMONARY: Chest is clear to auscultation, no wheezing or crackles. ABDOMEN: Soft, nontender, nondistended, normoactive bowel sounds. No palpable organomegaly. MUSCULOSKELETAL: No joint swelling or deformity. EXTREMITIES: No cyanosis, clubbing, or pedal edema. NEUROLOGICAL: Gross neurological examination did not reveal any focal deficits. SKIN: No rashes. - Labs CBC & Chem 7: 01/28/17 05:21 01/28/17 05:21 Labs: Abnormal Lab Results - Last 24 Hours (Table) 01/29/17 Range/Units 05:16 PT 25.5 H (9.0-12.0) sec INR 2.6 H (<1.2) Assessment and Plan Plan: #1 near syncopal episode: Concern about tachycardia-bradycardia syndrome, patient becomes quite symptomatic whenever she goes into atrial fibrillation presently rate controlled #2 atrial fibrillation: Presently rate controlled Coumadin patient is therapeutic on Coumadin, patient was recently started on Coumadin dose of Coumadin dose will be decreased #3 hiatal hernia #4 coronary artery disease #5 hyperlipidemia #6 hypertension #7 hypothyroidism For above-mentioned chronic medical problems appropriate home and occasions will be continued.
[2017-01-29] MEDS ORDERED: WARFARIN 2 MG TAB PO SCH (18:00)
--- NOTE | 2017-01-29 19:55 | EEG ---
ELECTROENCEPHALOGRAM REPORT REASON FOR TESTING: Dizziness. DESCRIPTION OF THE PROCEDURE: This EEG was performed using a 21-channel digital electroencephalograph, following international 10-20 system. DESCRIPTION OF THE RECORDING: From the beginning of the tracing, and with patient's eyes closed, the background rhythm was mostly consisting of 9 Hz alpha frequency in the posterior occipital leads. No obvious asymmetry is seen. Photic stimulation was performed with a minimal driving response seen. No pathological waves were elicited. Rare movement artifacts are seen. Hyperventilation was not performed. The patient remains awake throughout the tracing. No epileptiform discharges were seen. Her EKG lead showed an irregularly irregular rhythm with a tachycardic rate. INTERPRETATION: This awake EEG can be considered within normal limits, except her EKG lead showed an irregularly irregular rhythm with a tachycardic rate. No epileptiform discharges were seen. The absence of epileptiform discharges does not rule out the diagnosis of epilepsy; therefore clinical correlation is recommended. DASIA / CLARITA: [id number] /
[2017-01-29] MEDS: SODIUM CHLORIDE 0.9% 1,000 ML IV SCH (20:46)
[2017-01-29] MEDS ORDERED: ACETAMINOPHEN TAB 325 MG TAB PO PRN (22:56)
[2017-01-30] MEDS: LEVOTHYROXINE 100 MCG TAB PO SCH (06:12)
[2017-01-30 06:25] LABS: CH 32.6; CHCM 32.9; HCT 43.3 % (34.0-46.0); HGB 14.6 gm/dL (11.4-16.0); MCH 33.6 pg (25.0-35.0); MCHC 33.8 g/dL (31.0-37.0); MCV 99.5 fL (80.0-100.0); Mean Platelet Volume 7.8; RBC 4.35 m/uL (3.80-5.40); RDW 12.9 % (11.5-15.5)
[2017-01-30 06:34] LABS: INR 4.1 (<1.2); Prothrombin Time 40.7 sec (9.0-12.0)
[2017-01-30 06:38] LABS: Anion Gap 10 mmol/L; Blood Urea Nitrogen 15 mg/dL (7-17); Calcium 9.1 mg/dL (8.4-10.2); Carbon Dioxide 22 mmol/L (22-30); Chloride 107 mmol/L (98-107); Glucose 93 mg/dL (74-99); Non-African American GFR(MDRD) 58 (>60 ml/min/1.73 sqM); Potassium 3.8 mmol/L (3.5-5.1); Sodium 139 mmol/L (137-145)
[2017-01-30] MEDS ORDERED: PROPAFENONE 150 MG TAB PO STA (08:11)
[2017-01-30] MEDS: ASPIRIN 81 MG PO SCH (08:45)
[2017-01-30] MEDS: ATORVASTATIN 10 MG TAB PO SCH (08:45)
[2017-01-30] MEDS: METOPROLOL TARTRATE 25 MG TAB PO SCH ×2 (08:46→20:43)
[2017-01-30] MEDS: MECLIZINE 25 MG TAB PO SCH ×3 (08:46→20:44)
[2017-01-30] MEDS: LISINOPRIL 10 MG TAB PO SCH (08:46)
--- NOTE | 2017-01-30 11:06 | ECHOF ---
Referral Reason:afib MEASUREMENTS -------- HEIGHT: 160.0 cm WEIGHT: 64.4 kg BP: 121/67 RVIDd: 2.7 cm (< 3.3) IVSd: 1.1 cm (0.6 - 1.1) LVIDd: 4.6 cm (3.9 - 5.3) LVPWd: 1.2 cm (0.6 - 1.1) IVSs: 1.8 cm LVIDs: 2.9 cm LVPWs: 1.6 cm LAESV Index (A-L): 71.85 ml/m Ao Diam: 3.4 cm (2.0 - 3.7) AV Cusp: 1.5 cm (1.5 - 2.6) LA Diam: 4.4 cm (2.7 - 3.8) MV EXCURSION: 14.577 mm (> 18.000) MV EF SLOPE: 109 mm/s (70 - 150) EPSS: 0.4 cm RAP: 5.00 mmHg RVSP: 19.22 mmHg FINDINGS -------- Atrial fibrillation. This was a technically adequate study. The left ventricular size is normal. There is borderline concentric left ventricular hypertrophy. Overall left ventricular systolic function is normal with, an EF between 55 - 60 %. The right ventricle is mildly enlarged. LA is severely dilated >40 ml/m2 RA appears enlarged. There is mild aortic valve sclerosis. The mitral valve leaflets are mildly thickened. [id number] mitral regurgitation is present. Trace tricuspid regurgitation present. Right ventricular systolic pressure is normal at < 35 mmHg. There is no evidence of pulmonary hypertension. The pulmonic valve was not well visualized. There is no pulmonic regurgitation present. The aortic root size is normal. Normal inferior vena cava with normal inspiratory collapse consistent with estimated right atrial pre ssure of 5 mmHg. There is no pericardial effusion. CONCLUSIONS -------- 1. Atrial fibrillation. 2. This was a technically adequate study. 3. There is borderline concentric left ventricular hypertrophy. 4. Overall left ventricular systolic function is normal with, an EF between 55 - 60 %. 5. The right ventricle is mildly enlarged. 6. LA is severely dilated >40 ml/m2 7. RA appears enlarged. 8. There is mild aortic valve sclerosis. 9. The mitral valve leaflets are mildly thickened. 10. Rmwy-ct-yebjuxfn mitral regurgitation is present. 11. Trace tricuspid regurgitation present. 12. Right ventricular systolic pressure is normal at < 35 mmHg. 13. The pulmonic valve was not well visualized. 14. There is no pulmonic regurgitation present. 15. The aortic root size is normal. 16. There is no pericardial effusion. PIPING SUPERVISOR: Damon Liao RDCS
[2017-01-30] MEDS: CHOLECALCIFEROL 1,000 UNIT TAB PO SCH (12:30)
[2017-01-30] MEDS: MULTIVITAMINS, THERA 1 EACH TAB PO SCH (12:30)
--- NOTE | 2017-01-30 14:18 | P.PN ---
Subjective Progress Note Date: 01/30/17 Principal diagnosis: dizziness This is an 81-year-old female who follows with Dr. Franco in the office. She has a past medical history significant for coronary artery disease , hypertension, hyperlipidemia, paroxysmal atrial fibrillation, she presented to the hospital with symptoms of dizziness and lightheadedness. This morning around 4 AM patient went into A. fib with RVR, she states that she became extremely dizzy and lightheaded, states that she also felt mildly short of breath. CBC has been normal, INR today 2.6, potassium 3.6, BUN 15, creatinine 0.9. Mag level I.8. Troponin negative. Patient did have an EEG today, results are yet pending. She is being followed by neurology for her symptoms of dizziness. At the time of my examination today, she continues to be in A. fib however her rate is under good control. She does state that she feels much better than she did earlier today. CAT scan of the chest did not reveal any evidence of a pulmonary embolism. CAT scan of the brain did not reveal any acute intracranial hemorrhage or midline shift. 01/30/2017 Patient seen and examined this morning, overall she states she's feeling better today however she states when she gets up to do anything she still gets this dizzy lightheaded feeling. She continues to be in atrial fibrillation with a moderately rapid ventricular response. Blood pressure 122/70, heart rate in the 1 teens to 120s. INR today is 4.1. Potassium 3.8, BUN 15, creatinine 0.9. Patient had been on Eliquis in the past, she states that it cost her around $ 30 a month which was affordable, however she reached the [facility] with her insurance and now was having to pay $300 which she could not afford, for this reason patient was initiated on Coumadin. Her INR today is 4.1. We will speak with case management regarding reinitiating the patient's Eliquis, we will cover her for the next couple of months, then her payment will go down to $30 again in March. Today we will hold the Coumadin and the Eliquis both. We will also give the patient a one time dose of 600 mg of Rythmol today to see if we can convert her to normal sinus rhythm. She does not convert to normal sinus rhythm we will start her on IV amiodarone drip. If the patient does convert to normal sinus rhythm we will start her on flecainide acetate 50 mg by mouth twice a day. Objective - Vital Signs Vital signs: Vital Signs Temp 97.7 F 01/30/17 11:20 Pulse 102 H 01/30/17 11:20 Resp 18 01/30/17 11:20 BP 109/79 01/30/17 11:20 Pulse Ox 95 01/30/17 11:20 Intake & Output 01/29/17 01/30/17 01/30/17 18:59 06:59 18:59 Intake Total 350 320 360 Balance 350 320 360 Weight 64.4 kg Intake: IV 320 Sodium Chloride 0.9% 1, 320 000 ml @ 20 mls/hr IV . Q24H [facility] Rx#:[id number] Oral 350 360 Other: # Voids 1 - Exam PHYSICAL EXAMINATION: HEENT: Head is atraumatic, normocephalic. Pupils equal, round. Neck is supple. There is no elevated jugular venous pressure. HEART EXAMINATION: S1 and S2 irregularly irregular CHEST EXAMINATION: Lungs are clear to auscultation and precussion. No chest wall tenderness is noted on palpation or with deep breathing. ABDOMEN: Soft, nontender. Bowel sounds are heard. No organomegaly noted. EXTREMITIES: 2+ peripheral pulses with no evidence of peripheral edema and no calf tenderness noted. NEUROLOGIC patient is awake, alert and oriented -3. . - Labs CBC & Chem 7: 01/30/17 05:54 01/30/17 05:54 Labs: Abnormal Lab Results - Last 24 Hours (Table) 01/30/17 Range/Units 05:54 PT 40.7 H (9.0-12.0) sec INR 4.1 H (<1.2) Assessment and Plan Plan: Assessment and plan #1 symptoms of dizziness and lightheadedness, Dr. Franco does have a concern about possible tachybradycardia syndrome. currently in atrial fibrillation with controlled ventricular response. #2 paroxysmal atrial fibrillation, INR 2.6. #3 history of coronary artery disease #4 hypertension # 5 hyperlipidemia Plan Patient's echocardiogram with Doppler study revealed normal left ventricular systolic function. We will hold the Coumadin today, and discontinue it, we will also initiate the patient back on Eliquis, provide Eliquis samples for 2 months, in March her costovertebral down to $30 a month. We'll also give the patient a one time dose of 600 mg of Rythmol today, if the patient converts to normal sinus rhythm we will then start her on flecainide 50 mg one tablet by mouth twice a day. If the patient does not convert to normal sinus rhythm by the end of the day, then we will start her on IV amiodarone drip. DNP note has been reviewed, I agree with a documented findings and plan of care. Patient was seen and examined.
--- NOTE | 2017-01-30 14:40 | P.PN ---
Progress Note - Text Progress Note Date: 01/30/17 This is an addendum to the cardiology progress note of today. We did check a TSH level, which is borderline low, we will decrease the patient's dose of Synthroid to 100 g daily. DNP note has been reviewed, I agree with a documented findings and plan of care. Patient was seen and examined.
--- NOTE | 2017-01-30 15:37 | P.PN ---
Subjective patient was admitted for the dizziness patient gets dizzy quite symptomatic whenever she is in atrial fibrillation. Patient was given flecainide today we' ll see if she is converted to sinus rhythm with not patient will be started on amiodarone drip patient had episodes of dizziness even today. Constitutional: Denied any fatigue denied any fever. Cardio vascular: denied any chest pain, palpitations Gastrointestinal denied any nausea vomiting Pulmonary: Denied any shortness of breath cough Neurologic denied any new focal deficits Objective - Vital Signs Vital signs: Vital Signs Temp 97.7 F 01/30/17 11:20 Pulse 102 H 01/30/17 11:20 Resp 18 01/30/17 11:20 BP 109/79 01/30/17 11:20 Pulse Ox 95 01/30/17 11:20 Intake & Output 01/29/17 01/30/17 01/30/17 18:59 06:59 18:59 Intake Total 350 320 360 Balance 350 320 360 Weight 64.4 kg Intake: IV 320 Sodium Chloride 0.9% 1, 320 000 ml @ 20 mls/hr IV . Q24H [facility] Rx#:[id number] Oral 350 360 Other: # Voids 1 - Exam GENERAL: The patient is alert and oriented x3, not in any acute distress. Well developed, well nourished. HEENT: Pupils are round and equally reacting to light. EOMI. No scleral icterus. No conjunctival pallor. Normocephalic, atraumatic. No pharyngeal erythema. No thyromegaly. CARDIOVASCULAR: S1 and S2 present. No murmurs, rubs, or gallops. PULMONARY: Chest is clear to auscultation, no wheezing or crackles. ABDOMEN: Soft, nontender, nondistended, normoactive bowel sounds. No palpable organomegaly. MUSCULOSKELETAL: No joint swelling or deformity. EXTREMITIES: No cyanosis, clubbing, or pedal edema. NEUROLOGICAL: Gross neurological examination did not reveal any focal deficits. SKIN: No rashes. 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
--- NOTE | 2017-01-30 16:08 | P.PN ---
Subjective Progress Note Date: 01/30/17 Patient is a pleasant 81-year-old female who is being followed by the neurology service for dizziness. Patient was feeling lightheaded and dizzy throughout the day and symptoms persisted so she came to [facility] for further evaluation. Patient does have history of atrial fibrillation and was recently switched from Eliquis to Coumadin. INR was not yet therapeutic on admission as she had just started Coumadin 2 days prior. INR is 2.6 today which is therapeutic. Patient also states she was undergoing medication changes through her chief digital media officer. I had ordered a carotid Doppler, however patient is concerned insurance may not pay for this. Patient had carotid Doppler done less than 1 year ago and I requested those records. At the time of my evaluation, patient's resting comfortably in bed and appears to be in no acute distress. Patient's is at the bedside. 01/30/2017 Patient is a pleasant 81-year-old female who is being followed by the neurology service for dizziness. Patient states dizziness continues. She is getting up with the help of staff. As mentioned previously, this appears to be more cardiac related. Patient does have significant history of coronary artery disease and paroxysmal atrial fibrillation. Per cardiology note, Patient continues to be in atrial fibrillation with moderately rapid ventricular response. Currently cardiology is managing anticoagulation plans. If patient does not convert to normal sinus rhythm with oral agents, and amiodarone drip may be started. Patient's neurological exam continues to be normal. At the time of my evaluation, patient is resting comfortably in bed and appears to be in no acute distress. is at the bedside. Objective - Vital Signs Vital signs: Vital Signs Temp 97.7 F 01/30/17 11:20 Pulse 102 H 01/30/17 11:20 Resp 18 01/30/17 11:20 BP 109/79 01/30/17 11:20 Pulse Ox 95 01/30/17 11:20 Intake & Output 01/29/17 01/30/17 01/30/17 18:59 06:59 18:59 Intake Total 350 320 360 Balance 350 320 360 Weight 64.4 kg Intake: IV 320 Sodium Chloride 0.9% 1, 320 000 ml @ 20 mls/hr IV . Q24H [facility] Rx#:[id number] Oral 350 360 Other: # Voids 1 - Exam PHYSICAL EXAM: GENERAL APPEARANCE: Patient is a well-developed, female who appears to be in no acute distress. HEENT: Normocephalic, atraumatic, no facial asymmetry is seen. Neck is supple with no masses felt. CARDIOVASCULAR: Regular rate and rhythm. ABDOMEN: Nontender, nondistended. EXTREMITIES: Show no edema or clubbing. NEUROLOGICAL EXAM: Patient is awake, alert, and oriented 3. Speech and language are normal. Strength is full in all 4 extremities. Sensory exam is normal to light touch in all 4 extremities. No facial asymmetry is noted on cranial nerve testing. No tremors or seizure-like activity is seen. - Labs CBC & Chem 7: 01/30/17 05:54 01/30/17 05:54 Labs: Abnormal Lab Results - Last 24 Hours (Table) 01/30/17 Range/Units 05:54 PT 40.7 H (9.0-12.0) sec INR 4.1 H (<1.2) Assessment and Plan Plan: Impression: 1. Dizziness 2. Atrial fibrillation Recommendation: Patient's dizziness is more consistent with cardiovascular etiology. Her neurological exam is normal and her computed tomography scan of the brain showed no acute findings. Her INR is currently high at 4.1 and Coumadin will be held. Cardiology is managing this. EEG was normal. Continue neurological checks. Cardiology is following. Continue current workup and management. I will continue to follow with you on an as-needed basis. Feel free to call with any questions or concerns. I performed an examination of the patient and discussed the management with the MACHINE OPERATIONS SUPERVISOR. I have reviewed the MACHINE OPERATIONS SUPERVISOR notes and agree with the findings and plan of care.
[2017-01-30] MEDS: AMIODARONE 450 MG in DEXTROSE 5% IN WATER 250 ML IV SCH ×2 (18:53)
[2017-01-30] MEDS: SODIUM CHLORIDE 0.9% 1,000 ML IV SCH (20:46)
[2017-01-31] MEDS: AMIODARONE 450 MG in DEXTROSE 5% IN WATER 250 ML IV SCH ×2 (01:10)
[2017-01-31] MEDS ORDERED: LEVOTHYROXINE 100 MCG TAB PO SCH (06:30)
[2017-01-31 06:33] LABS: CH 32.6; CHCM 33.5; HCT 46.3 % (34.0-46.0); HDW 2.33; MCH 31.8 pg (25.0-35.0); MCHC 32.5 g/dL (31.0-37.0); MCV 97.9 fL (80.0-100.0); RBC 4.72 m/uL (3.80-5.40); RDW 12.1 % (11.5-15.5); WBC 7.5 k/uL (3.8-10.6)
[2017-01-31 06:42] LABS: INR 4.6 (<1.2); Prothrombin Time 45.7 sec (9.0-12.0)
[2017-01-31 06:46] LABS: Calcium 9.1 mg/dL (8.4-10.2); Potassium 4.1 mmol/L (3.5-5.1)
--- NOTE | 2017-01-31 09:23 | P.PN ---
Subjective Progress Note Date: 01/31/17 Principal diagnosis: Paroxysmal A. fib This is a pleasant 81-year-old female patient with a past medical history significant for CAD and prior angioplasty and stenting as well as paroxysmal nature fibrillation presented to the hospital not feeling well where she was experiencing dizziness and lightheadedness. In the hospital the patient went into an A. fib with RVR. She was started on amiodarone IV. She has been in A. fib with controlled heart rate. She denies having any chest pain or chest discomfort. From the cardiovascular standpoint overview, I am going to DC the amiodarone IV and started on amiodarone by mouth. The patient can be discharged home later on today. Objective - Vital Signs Vital signs: Vital Signs Temp 97 F L 01/31/17 04:00 Pulse 85 01/31/17 04:00 Resp 16 01/31/17 04:00 BP 118/82 01/31/17 04:00 Pulse Ox 95 01/31/17 04:00 Intake & Output 01/30/17 01/31/17 01/31/17 18:59 06:59 18:59 Intake Total 560 729.423 Balance 560 729.423 Weight 64 kg Intake: IV 520 Amiodarone 450 mg In 200 Dextrose 5% in Water 250 ml @ 1 MG/MIN 33.33 mls/ hr IV .Q7H31M [facility] Rx#: [id number] Sodium Chloride 0.9% 1, 320 000 ml @ 20 mls/hr IV . Q24H [facility] Rx#:[id number] Intake, IV Titration 209.423 Amount Amiodarone 450 mg In 209.423 Dextrose 5% in Water 250 ml @ 1 MG/MIN 33.33 mls/ hr IV .Q7H31M [facility] Rx#: [id number] Oral 560 Other: # Voids 2 - Constitutional General appearance: Present: no acute distress - Respiratory Respiratory: bilateral: CTA - Cardiovascular Rhythm: regular Heart sounds: normal: S1, S2 - Labs CBC & Chem 7: 01/31/17 05:47 01/31/17 05:47 Labs: Abnormal Lab Results - Last 24 Hours (Table) 01/31/17 01/31/17 01/31/17 Range/Units 05:47 05:47 05:47 Hct 46.3 H (34.0-46.0) % PT 45.7 H (9.0-12.0) sec INR 4.6 H (<1.2) BUN 18 H (7-17) mg/dL Creatinine 1.10 H (0.52-1.04) mg/dL Assessment and Plan Assessment: I will DC the amiodarone IV and start the patient on amiodarone by mouth. The patient can be discharged home.
[2017-01-31] MEDS: LISINOPRIL 10 MG TAB PO SCH (10:15)
[2017-01-31] MEDS: ATORVASTATIN 10 MG TAB PO SCH (10:15)
[2017-01-31] MEDS: MECLIZINE 25 MG TAB PO SCH (10:15)
[2017-01-31] MEDS: ASPIRIN 81 MG PO SCH (10:15)
[2017-01-31] MEDS: METOPROLOL TARTRATE 25 MG TAB PO SCH (10:16)
[2017-01-31 10:52] VITALS: RESP 18
[2017-01-31 11:56] VITALS: BP 121/86; PULSE 100; TEMP 97.1
[2017-01-31] MEDS: CHOLECALCIFEROL 1,000 UNIT TAB PO SCH (12:24)
[2017-01-31] MEDS: MULTIVITAMINS, THERA 1 EACH TAB PO SCH (12:24)
[2017-01-31] MEDS ORDERED: PNEUMOCOCCAL VACC-PNEUMOVAX 23 25 MCG/0.5 ML VIAL IM ONE (15:15)
[2017-01-31] MEDS ORDERED: AMIODARONE 200 MG TAB PO SCH (21:00)
--- NOTE | 2017-02-01 09:58 | P.DS ---
Providers Date of admission: 01/27/17 21:41 Expected date of discharge: 01/31/17 Attending physician: Alisha Moreno Consults: 01/27/17 23:28 Consult Physician Routine Consulting Provider: Ankit Anguiano Consult Reason/Comments: syncope Do you want consulting provider notified?: Yes 01/28/17 17:39 Consult Physician Routine Consulting Provider: Larissa Chapin Consult Reason/Comments: Vertigo/dizziness Do you want consulting provider notified?: Yes Primary care physician: Juan Palmer [facility] Hospital Course: Final Diagnoses: #1 near syncopal episode: Concern about tachycardia-bradycardia syndrome, patient becomes quite symptomatic whenever she goes into atrial fibrillation presently rate controlled , patient becomes quite symptomatic with atrial fib. #2 atrial fibrillation: INR is elevated and supratherapeutic Coumadin will be held repeat INR tomorrow #3 hiatal hernia #4 coronary artery disease #5 hyperlipidemia #6 hypertension #7 hypothyroidism Hospital course: This is an 81-year-old female, history of CAD, proximal atrial fibrillation, admitted with symptomatic A. fib RVR. Evaluated by both neurology and cardiology. Neuro workup negative. Treated with amiodarone drip , converted to oral amiodarone. Remains in atrial fibrillation with controlled ventricular rate. Echo revealed normal LV function, EF 55-60%, severely dilated LA, mild to moderate mitral regurgitation. Brain CT nonacute. Coumadin discontinued and patient to be anticoagulated with Eliquis. Significant clinical improvement. Cleared for discharge by consults. Patient being discharged home in a stable condition with guarded prognosis. The impression and plan of care has been dictated as directed. : I performed a history and examination of this patient, discussed the same with the dictator. I agree with the dictator's note ,documented as a scribe. Any additional findings or plans will be noted. Patient Condition at Discharge: Stable Plan - Discharge Summary Discharge Rx Participant: Yes New Discharge Prescriptions: New Lisinopril [Zestril] 10 mg PO DAILY #30 tab Amiodarone [Cordarone] 200 mg PO BID #60 tab Continue Metoprolol Tartrate 25 mg PO BID Atorvastatin [Lipitor] 10 mg PO DAILY Multivit-Min/FA/Lycopene/Lut [Centrum Silver Tablet] 1 tab PO DAILY Glucosamine/Chondr Devlin A Sod [Osteo Bi-Flex Caplet] 1 tab PO DAILY Fish Oil/Dha/Epa [Fish Oil 1,200 mg Fish Oil] 1 cap PO DAILY Cholecalciferol (Vitamin D3) [Vitamin D3] 2,000 unit PO DAILY Aspirin [Children's Aspirin] 81 mg PO DAILY Changed Levothyroxine Sodium [Synthroid] 100 mcg PO DAILY #0 Discontinued Lisinopril-Hctz 10-12.5 mg [Zestoretic 10-12.5] 1 tab PO DAILY Levothyroxine Sodium [Synthroid] 150 mcg PO DEVLIN Warfarin [Coumadin] 5 mg PO DAILY Discharge Medication List Atorvastatin [Lipitor] 10 mg PO DAILY 10/31/14 [History] Glucosamine/Chondr Devlin A Sod [Osteo Bi-Flex Caplet] 1 tab PO DAILY 10/31/14 [ History] Metoprolol Tartrate 25 mg PO BID 10/31/14 [History] Multivit-Min/FA/Lycopene/Lut [Centrum Silver Tablet] 1 tab PO DAILY 10/31/14 [ History] Aspirin [Children's Aspirin] 81 mg PO DAILY 01/27/17 [History] Cholecalciferol (Vitamin D3) [Vitamin D3] 2,000 unit PO DAILY 01/27/17 [History] Fish Oil/Dha/Epa [Fish Oil 1,200 mg Fish Oil] 1 cap PO DAILY 01/27/17 [History] Amiodarone [Cordarone] 200 mg PO BID #60 tab 01/31/17 [Rx] Levothyroxine Sodium [Synthroid] 100 mcg PO DAILY #0 01/31/17 [Rx] Lisinopril [Zestril] 10 mg PO DAILY #30 tab 01/31/17 [Rx] Follow up Appointment(s)/Referral(s): Spencer Martinez MD [Primary Care Provider] - 02/04/17 1:10 pm (Friday) Ankit Anguiano MD [STAFF PHYSICIAN] - 02/15/17 9:00 am (Previously scheduled appointment) Ambulatory/Diagnostic Orders: Complete Blood Count w/diff [LAB.AMB] Time Frame: 3 Days, Location: Determined By Patient Patient Instructions/Handouts: A-fib (Atrial Fibrillation) (DC) Activity/Diet/Wound Care/Special Instructions: Eliquis Discharge RX patient- begin taking in 48H( INR 4.7). Will receive 30 days free of Eliquis using 30-day free trial offer coupon, then follow up with [facility] for samples. Discharge Disposition: HOME SELF-CARE
[2017-02-02] MEDS ORDERED: LEVOTHYROXINE 75 MCG TAB PO SCH (06:30)
== END 2017-01-31 15:51 | disposition home or self-care (01) | DRG 310 ==
LOC: EC 16:52 → 6SEL 21:41
PROVIDERS: ADMIT Hospitalist; ATTEND Hospitalist
DX: I49.5 Sick sinus syndrome (principal); I34.0 Nonrheumatic mitral (valve) insufficiency; I48.0 Paroxysmal atrial fibrillation; I10 Essential (primary) hypertension; E03.9 Hypothyroidism, unspecified; E78.5 Hyperlipidemia, unspecified; F40.240 Claustrophobia; I25.10 Atherosclerotic heart disease of native coronary artery without angina pectoris; K44.9 Diaphragmatic hernia without obstruction or gangrene; R79.1 Abnormal coagulation profile; Z79.01 Long term (current) use of anticoagulants; Z79.82 Long term (current) use of aspirin; Z79.899 Other long term (current) drug therapy; Z80.0 Family history of malignant neoplasm of digestive organs; Z80.3 Family history of malignant neoplasm of breast; Z85.850 Personal history of malignant neoplasm of thyroid; Z95.5 Presence of coronary angioplasty implant and graft; Z88.5 Allergy status to narcotic agent
CPT/HCPCS: 36415; 70450; 71020; 71275; 80048; 80053; 81001; 82550; 82553; 83735; 84443; 84484; 85025; 85027; 85379; 85610; 85730; 90732; 93005; 93306; 95816; 96361; 96374; 96375; 99285

== ENCOUNTER → 2017-02-17 | Outpatient (CLI) | payer MEDICARE ==
[2017-02-17 11:31] LABS: CH 32.2; CHCM 32.1; HCT 39.5 % (34.0-46.0); HGB 12.7 gm/dL (11.4-16.0); MCH 32.4 pg (25.0-35.0); MCHC 32.2 g/dL (31.0-37.0); MCV 100.7 fL (80.0-100.0); Macrocytosis Slight; Mean Platelet Volume 7.8; RBC 3.92 m/uL (3.80-5.40); RDW 13.6 % (11.5-15.5); WBC 5.8 k/uL (3.8-10.6)
[2017-02-17 11:58] LABS: Calcium 9.3 mg/dL (8.4-10.2); Potassium 4.6 mmol/L (3.5-5.1)
== END | disposition home or self-care (01) ==
LOC: LABWHC1 10:50
PROVIDERS: ATTEND Internal Medicine Interventional Cardiology
DX: E03.9 Hypothyroidism, unspecified (principal)
CPT/HCPCS: 36415; 80048; 84443; 84450; 84460; 85027

== ENCOUNTER → 2017-05-14 | Outpatient (CLI) | payer MEDICARE ==
--- NOTE | 2017-05-15 13:51 | MM ---
Reason for exam: screening (asymptomatic). Last mammogram was performed 1 year ago. History: Patient is postmenopausal and has history of other cancer at age 63. Family history of breast cancer in sister at age 58 and premenopausal breast cancer in mother at age 45. Ultrasound-guided cyst aspiration of the right breast, July 04, 1999. Benign cyst aspiration of the right breast. Physical Findings: A clinical breast exam by your physician is recommended on an annual basis and results should be correlated with mammographic findings. MG 3D Screening Mammo W/Cad Bilateral CC and MLO view(s) were taken. Prior study comparison: May 07, 2016, bilateral MG 3d screening mammo w/cad. May 08, 2015, left breast MG 3d work up w/cad LT. There are scattered fibroglandular densities. No significant changes when compared with prior studies. ASSESSMENT: Benign, BI-RAD 2 RECOMMENDATION: Routine screening mammogram of both breasts in 1 year.
== END ==
LOC: RADMAMWWP 09:28
PROVIDERS: ATTEND Internal Medicine
DX: Z12.31 Encounter for screening mammogram for malignant neoplasm of breast (principal)
CPT/HCPCS: 77063; 77067

== ENCOUNTER → 2017-10-29 | Outpatient (CLI) | payer MEDICARE ==
[2017-10-29 09:46] LABS: HCT 39.5 % (34.0-46.0); MCHC 32.9 g/dL (31.0-37.0); MCV 100.4 fL (80.0-100.0); Platelet Count 218 k/uL (150-450); RBC 3.94 m/uL (3.80-5.40); RDW 12.8 % (11.5-15.5); WBC 6.8 k/uL (3.8-10.6)
[2017-10-29 09:58] LABS: Calcium 9.6 mg/dL (8.4-10.2); Potassium 4.5 mmol/L (3.5-5.1)
== END | disposition home or self-care (01) ==
LOC: LABWHC1 08:55
PROVIDERS: ATTEND Internal Medicine Interventional Cardiology
DX: N18.9 Chronic kidney disease, unspecified (principal)
CPT/HCPCS: 36415; 80048; 84450; 84460; 85027

== ENCOUNTER → 2018-05-19 | Outpatient (CLI) | payer MEDICARE ==
--- NOTE | 2018-05-20 08:39 | MM ---
Reason for exam: screening (asymptomatic). Last mammogram was performed 1 year ago. History: Patient is postmenopausal and has history of other cancer at age 63. Family history of breast cancer in sister at age 58 and premenopausal breast cancer in mother at age 45. Ultrasound-guided cyst aspiration of the right breast, July 04, 1999. Benign cyst aspiration of the right breast. Physical Findings: A clinical breast exam by your physician is recommended on an annual basis and results should be correlated with mammographic findings. MG 3D Screening Mammo W/Cad Bilateral CC and MLO view(s) were taken. Prior study comparison: May 14, 2017, bilateral MG 3d screening mammo w/cad. May 07, 2016, bilateral MG 3d screening mammo w/cad. There are scattered fibroglandular densities. Benign appearing bilateral calcifications. No suspicious abnormality. No significant changes when compared with prior studies. ASSESSMENT: Benign, BI-RAD 2 RECOMMENDATION: Routine screening mammogram of both breasts in 1 year.
== END ==
LOC: RADMAMWWP 08:03
PROVIDERS: ATTEND Internal Medicine
DX: Z12.31 Encounter for screening mammogram for malignant neoplasm of breast (principal)
CPT/HCPCS: 77063; 77067

== ENCOUNTER → 2019-05-27 | Outpatient (CLI) | payer MEDICARE ==
--- NOTE | 2019-05-28 13:42 | MM ---
Reason for exam: screening (asymptomatic). Last mammogram was performed 1 year ago. History: Patient is postmenopausal and has history of other cancer at age 63. Family history of breast cancer in sister at age 58 and premenopausal breast cancer in mother at age 45. Ultrasound-guided cyst aspiration of the right breast, July 04, 1999. Benign cyst aspiration of the right breast. Physical Findings: A clinical breast exam by your physician is recommended on an annual basis and results should be correlated with mammographic findings. MG 3D Screening Mammo W/Cad Bilateral CC and MLO view(s) were taken. Prior study comparison: May 19, 2018, bilateral MG 3d screening mammo w/cad. May 14, 2017, bilateral MG 3d screening mammo w/cad. There are scattered fibroglandular densities. There is chronic nodularity in the right breast. Central asymmetric density right CC view is more defined and incompletely disperses on 3D. ASSESSMENT: Incomplete: need additional imaging evaluation, BI-RAD 0 RECOMMENDATION: Special view mammogram of the right breast. (3D) If lesion persists on supplemental views, image directed ultrasound is recommended. [facility] will attempt to contact patient to return for supplemental views and ultrasound if indicated.
== END | disposition home or self-care (01) ==
LOC: RADMAMWWP 14:04
PROVIDERS: ATTEND Internal Medicine
DX: Z12.31 Encounter for screening mammogram for malignant neoplasm of breast (principal)
CPT/HCPCS: 77063; 77067

== ENCOUNTER → 2019-06-08 | Outpatient (CLI) | payer MEDICARE ==
--- NOTE | 2019-06-08 11:25 | MM ---
Reason for exam: additional evaluation requested from abnormal screening. Last mammogram was performed less than 1 month ago. History: Patient is postmenopausal and has history of other cancer at age 63. Family history of breast cancer in sister at age 58 and premenopausal breast cancer in mother at age 45. Ultrasound-guided cyst aspiration of the right breast, July 04, 1999. Benign cyst aspiration of the right breast. Physical Findings: Nurse did not find any significant physical abnormalities on exam. MG 3D Work Up W/Cad RT Spot compression CC, spot compression MLO, CCRM, and ML view(s) were taken of the right breast. Prior study comparison: May 27, 2019, bilateral MG 3d screening mammo w/cad. May 19, 2018, bilateral MG 3d screening mammo w/cad. The breast tissue is heterogeneously dense. This may lower the sensitivity of mammography. There is chronic nodularity in the right breast outer aspect. No distinct new lesion persists on additional views. These results were verbally communicated with the patient and result sheet given to the patient on 06/08/19. ASSESSMENT: Benign, BI-RAD 2 RECOMMENDATION: Return to routine screening mammogram schedule for both breasts.
== END | disposition home or self-care (01) ==
LOC: RADMAMWWP 10:06
PROVIDERS: ATTEND Internal Medicine
DX: R92.8 Other abnormal and inconclusive findings on diagnostic imaging of breast (principal)
CPT/HCPCS: 77065; G0279; 77061

== ENCOUNTER → 2019-10-19 | Outpatient (CLI) | payer MEDICARE ==
[2019-10-19 13:14] LABS: HCT 42.5 % (34.0-46.0); HGB 14.1 gm/dL (11.4-16.0); MCH 33.5 pg (25.0-35.0); MCHC 33.2 g/dL (31.0-37.0); MCV 100.9 fL (80.0-100.0); Mean Platelet Volume 7.7; Platelet Count 212 k/uL (150-450); RBC 4.21 m/uL (3.80-5.40); RDW 12.5 % (11.5-15.5); WBC 6.6 k/uL (3.8-10.6)
[2019-10-19 19:26] LABS: T4, Free (Free Thyroxine) 1.6 ng/dL (0.80-1.80)
[2019-10-19 19:34] LABS: African American GFR (CKD) 47.7 (60.0-200.0); Albumin 4.4 g/dL (3.80-4.90); Albumin/Globulin Ratio 1.83 (1.60-3.17); Anion Gap 3.4 mmol/L (4.00-12.00); Carbon Dioxide 32.6 mmol/L (21.6-31.8); Chol/HDL Ratio 3.24; Globulin 2.4 g/dL (1.6-3.3); LDL Cholesterol,Calculated 91.6 mg/dL (0.0-131.0); Non-African American GFR(CKD) 41.2 (60.0-200.0); Potassium 4.2 mmol/L (3.5-5.5); Total Bilirubin 1.3 mg/dL (0.2-1.2); Total Protein 6.8 g/dL (6.2-8.2); VLDL Calculation 18.4 mg/dL (5.00-40.00)
[2019-10-19 21:00] LABS: Hemoglobin A1C 5.2 % (4.0-6.0)
[2019-10-20 18:33] LABS: Folate, Serum >24.0 ng/mL
== END | disposition home or self-care (01) ==
LOC: LABWHC1 11:12
PROVIDERS: ATTEND Internal Medicine
DX: I10 Essential (primary) hypertension (principal); E78.5 Hyperlipidemia, unspecified; N28.9 Disorder of kidney and ureter, unspecified; R63.4 Abnormal weight loss; E03.9 Hypothyroidism, unspecified; D75.89 Other specified diseases of blood and blood-forming organs
CPT/HCPCS: 36415; 80053; 80061; 82607; 82746; 83036; 84439; 84443; 84481; 85027

== ENCOUNTER → 2020-07-26 | Outpatient (CLI) | payer MEDICARE ==
--- NOTE | 2020-07-27 13:34 | MM ---
Reason for exam: screening (asymptomatic). Last mammogram was performed 1 year and 2 months ago. History: Patient is postmenopausal and has history of other cancer at age 63. Family history of breast cancer in sister at age 58 and premenopausal breast cancer in mother at age 45. Ultrasound-guided cyst aspiration of the right breast, July 04, 1999. Benign cyst aspiration of the right breast. Physical Findings: A clinical breast exam by your physician is recommended on an annual basis and results should be correlated with mammographic findings. MG 3D Screening Mammo W/Cad Bilateral CC and MLO view(s) were taken. XCCL view(s) were taken of the left breast. Prior study comparison: June 08, 2019, right breast MG 3d work up w/cad RT. May 27, 2019, bilateral MG 3d screening mammo w/cad. The breast tissue is heterogeneously dense. This may lower the sensitivity of mammography. There are benign appearing round and dystrophic calcifications bilaterally. There is no discrete abnormality. ASSESSMENT: Benign, BI-RAD 2 RECOMMENDATION: Routine screening mammogram of both breasts in 1 year.
== END | disposition home or self-care (01) ==
LOC: RADMAMWWP 10:06
PROVIDERS: ATTEND Internal Medicine
DX: Z12.31 Encounter for screening mammogram for malignant neoplasm of breast (principal); Z78.0 Asymptomatic menopausal state; Z80.3 Family history of malignant neoplasm of breast
CPT/HCPCS: 77063; 77067

== ENCOUNTER → 2021-09-17 | Outpatient (CLI) | payer MEDICARE ==
--- NOTE | 2021-09-18 09:29 | MM ---
Reason for Exam: Screening (asymptomatic). Last mammogram was performed 1 year(s) and 2 month(s) ago. Patient History: Menarche at age 10. First Full-Term at age 19. Left ovary removed at age 48. Right ovary removed at age 48. Hysterectomy at age 46. Postmenopausal. Other cancer, age 63. Benign Cyst Aspiration on the right side. 07/04/1999, Ultrasound-Guided Cyst Aspiration on the Right side. Sister had breast cancer, age 58. Mother had breast cancer, age 45. Prior Study Comparison: 05/27/2019 Bilateral Screening Mammogram, [facility]. 06/08/2019 Right Diagnostic Mammogram, [facility]. 07/26/2020 Bilateral Screening Mammogram, [facility]. Tissue Density: The breast tissue is heterogeneously dense. This may lower the sensitivity of mammography. Findings: Analyzed By CAD. There is no suspicious group of microcalcifications or new suspicious mass in either breast. Benign calcifications noted. Overall Assessment: Benign, BI-RAD 2 Management: Screening Mammogram of both breasts in 1 year. A clinical breast exam by your physician is recommended on an annual basis and results should be correlated with mammographic findings. Electronically signed and approved by: Nikos Martinez M.D. [facility]
== END | disposition home or self-care (01) ==
LOC: RADMAMWWP 10:54
PROVIDERS: ATTEND Internal Medicine
DX: Z12.31 Encounter for screening mammogram for malignant neoplasm of breast (principal); Z78.0 Asymptomatic menopausal state; Z80.3 Family history of malignant neoplasm of breast
CPT/HCPCS: 77063; 77067